=== PATIENT | female | born 2000 | race Caucasian/White ===

== ENCOUNTER 2021-05-05 21:13 | Emergency (ER) | payer OTHER ==
[~2021-05-05] VITALS: Ht 167.6 cm; Wt 83.5 kg
[2021-05-05 21:45] VITALS: BP 130/47
--- NOTE | 2021-05-06 00:09 | NUR ---
PLACED INTO GOWN AND BED 11
--- NOTE | 2021-05-06 00:41 | NUR ---
PELVIC EXAM PREP PLACED AT BEDSIDE.
--- NOTE | 2021-05-06 01:34 | NUR ---
ER MD BEDSIDE FOR PELVIC EXAM, FEMALE CHAPERRONE PRESENT
[2021-05-06] MEDS ORDERED: DOXYCYCLINE 100 MG CAP PO STA (01:39)
[2021-05-06] MEDS ORDERED: ACETAMINOPHEN EXTRA STRENGTH 500 MG TAB PO ONE (01:40)
[2021-05-06] MEDS ORDERED: IBUPROFEN 400 MG TAB PO ONE (01:40)
[2021-05-06] MEDS ORDERED: cefTRIAXone 500 MG in LIDOCAINE MPF 1% 1 ML IM ONE (01:40)
[2021-05-06] MEDS ORDERED: DOXY-690 PO (01:43)
[2021-05-06] MEDS ORDERED: CEPH-588 PO (01:44)
[2021-05-06] MEDS ORDERED: cephALEXin 500 MG CAP PO ONE (01:45)
[2021-05-06] MEDS ORDERED: cefTRIAXone 500 MG VIAL ONE (01:58)
[2021-05-06] MEDS ORDERED: LIDOCAINE MPF 1% 5 ML ONE (01:59)
[2021-05-06] MEDS ORDERED: FLUCONAZOLE 100 MG TAB PO ONE (02:25)
[2021-05-06] MEDS ORDERED: METR-520 PO (02:30)
--- NOTE | 2021-05-06 02:48 | NUR ---
PATIENT CLEARED FOR DISHCARGE AT THIS TIME. ADVISED TO FOLLOW UP WITH PCP AND RETURN IF CONDITION WORSENS. DENIES ANY FURTEHR QUESTIONS FOLLOWING DISCHARGE TEACHNITHIN.
[2021-05-06 02:49] VITALS: BP 98/50
== END 2021-05-06 02:47 | disposition home or self-care (01) ==
LOC: MED 21:13
DX: N39.0 Urinary tract infection, site not specified (principal); B37.3 Candidiasis of vulva and vagina; N73.9 Female pelvic inflammatory disease, unspecified; Z79.2 Long term (current) use of antibiotics
CPT/HCPCS: 81002; 81025; 87210; 96372; 99284; J0696; J2001